=== PATIENT | female | born 2000 | race Caucasian/White ===

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

== ENCOUNTER → 2019-09-18 | Outpatient (CLI) | payer BC | LOC: ZCOL.LAB 20:00 | DX: Z20.828 Contact with and (suspected) exposure to other viral communicable diseases (principal) ==

== ENCOUNTER 2019-10-26 13:45 | Outpatient (RCR) | payer BC | END 2019-12-20 | disposition home or self-care (01) | LOC: WSST | DX: J38.3 Other diseases of vocal cords (principal) ==

== ENCOUNTER 2021-02-19 09:44 | Outpatient (RCR) | payer BC | END 2021-03-30 | disposition home or self-care (01) | LOC: WSST | DX: J38.3 Other diseases of vocal cords (principal); R68.89 Other general symptoms and signs; R09.89 Other specified symptoms and signs involving the circulatory and respiratory systems; R07.0 Pain in throat; R19.8 Other specified symptoms and signs involving the digestive system and abdomen ==

== ENCOUNTER → 2021-02-26 | Outpatient (CLI) | payer BC | LOC: COL.LAB 12:10 | DX: Z01.89 Encounter for other specified special examinations (principal) ==